=== PATIENT | male | born 1995 | race Caucasian/White ===

== ENCOUNTER 2021-05-13 16:00 | Outpatient (CLI) | payer BC, SELFPAY ==
--- NOTE | ~2021-05-13 | CT_ITS ---
EXAMINATION: CT abdomen pelvis w con EXAM DATE: 05/13/2021 16:47 INDICATION: Right lower quadrant abdominal pain. TECHNIQUE: Spiral CT of the abdomen and pelvis was performed following intravenous injection of 100 m L Omnipaque 350. Axial, coronal and sagittal images of the abdomen and pelvis were reviewed. The do se-length product (DLP) for this examination was 975.29 mGy-cm. The exposure was tailored according to patient size (auto mA exposure control), and iterative reconstruction (ASIR) was used as additiona l dose reduction technique. There is no prior study for comparison. FINDINGS: The liver, spleen, adrenal glands and pancreas are unremarkable. Splenule. Gallbladder is u nremarkable. No biliary obstruction. Portal and splenic veins are patent. Kidneys enhance symmetri tameka. There is no hydronephrosis. The prostate is unremarkable. The bladder is unremarkable. Th ere is no retroperitoneal or pelvic lymphadenopathy. There are no findings to suggest appendicitis. The stomach and small bowel are unremarkable. There is expected amount of colonic stool. No free intraperitoneal gas. The heart is normal in size. T here are no pericardial or pleural effusions. The lung bases are unremarkable. There are no osteobl astic or osteolytic lesions identified. IMPRESSION: 1. No acute intra-abdominal findings. Reviewed, dictated and finalized at location A. NT HANDLER
== END 2021-05-13 16:01 | disposition home or self-care (01) ==
PROVIDERS: PCP Emergency Medicine; Visit Provider Emergency Medicine
DX: R10.9 Unspecified abdominal pain (principal)
CPT/HCPCS: 74177; Q9967

== ENCOUNTER 2021-10-31 08:13 | Emergency (ER) | payer BC, SELFPAY ==
[2021-10-31] VITALS (9 sets, daily range): BP systolic 118–146; BP diastolic 97–100; PULSE 62–88; RESP 15–19; TEMP 36.6; O2SAT 98–100
--- NOTE | ~2021-10-31 | XR_ITS ---
EXAMINATION: XR chest 2V 10/31/2021 08:34 INDICATION: Anterior chest pain PROCEDURE: 2 view chest COMPARISON: No prior studies for comparison. FINDINGS: The lungs are clear. The cardiomediastinal silhouette is within normal limits. There are no pleural effusions. There is no pneumothorax suspected. IMPRESSION: 1: NO ACUTE CARDIOPULMONARY DISEASE. Reviewed, dictated and finalized at location D.
--- NOTE | 2021-10-31 08:14 | ECG_ITS ---
Measurements Intervals [place] Rate: 79 P: 38 SD: 180 QRS: -1 QRSD: 86 T: -1 QT: 366 QTc: 421 Interpretive Statements SINUS RHYTHM BORDERLINE T WAVE ABNORMALITY- INFERIOR LEADS BASELINE ARTIFACT- I, III BORDERLINE ECG Electronically Signed On 10-31-2021 8:27:20 CDT by Chris Cordon D.O.
[2021-10-31] MEDS: ASPIRIN 81 MG CHEWABLE TABLET 324 MG PO (08:34)
[2021-10-31 08:37] LABS: Basophils Percent Auto 0.4 % (0.2-1.2); Eosinophils Absolute Auto 0.1 K/mm3 (0-0.3); Eosinophils Percent Auto 1.1 % (0-4.4); Hematocrit 45.2 % (42.0-52.0); Hemoglobin 15.3 g/dL (14.0-18.0); Immature Granulocyte Absolute 0.01 K/mm3 (0.00-0.031); Immature Granulocyte Percent A 0.2 % (0-0.5); Lymphocytes Absolute Auto 1.67 K/mm3 (0.9-3.2); Lymphocytes Percent Auto 35.2 % (18.3-44.2); Mean Corpuscular HGB Conc 33.8 g/dl (32-36); Mean Corpuscular Hemoglobin 30.1 pg (26-34); Mean Corpuscular Volume 88.8 fl (80-100); Mean Platelet Volume 9.6 fl (7.4-10.4); Monocytes Absolute Auto 0.4 K/mm3 (0.1-0.6); Monocytes Percent Auto 8.4 % (2.6-8.5); Neutrophils Absolute Auto 2.6 K/mm3 (1.3-6.7); Neutrophils Percent Auto 54.7 % (45.5-73.1); Platelet Count Result 254 k/mm3 (150-375); Red Blood Count 5.09 M/mm3 (4.6-6.20); Red Cell Distribution Width 12.1 % (11.5-14.5); White Blood Count 4.7 K/mm3 (4.5-10.0)
[2021-10-31 08:48] LABS: Partial Thromboplastin Time 28.1 SECONDS (22.3-36.8)
[2021-10-31 08:51] LABS: Alanine Aminotransferase 32 U/L (6-50); Albumin Level 4.6 g/dL (3.5-5.1); Alkaline Phosphatase 69 U/L (38-126); Anion Gap 9 mmol/L (8-16); Aspartate Amino Transferase 29 U/L (17-59); Bilirubin,Total 0.5 mg/dL (0.2-1.3); Blood Urea Nitrogen 12 mg/dL (9-20); Calcium 8.9 mg/dL (8.4-10.2); Carbon Dioxide 26 mmol/L (22-30); Chloride 102 mmol/L (98-107); Estimated CRCL calculation 101 ml/min; Estimated Glomerular Filt Rate > 60; Glucose 99 mg/dL (65-110); Lipase 75 U/L (23-300); Sodium 137 mmol/L (137-145)
[2021-10-31 08:59] LABS: Troponin I < 0.012 ng/mL (0.000-0.034)
--- NOTE | 2021-10-31 10:17 | ED.CHESTPAIN ---
HPI - Chest Pain General Chief Complaint: Chest Pain Stated Complaint: chest pain Time Seen by Provider: 10/31/21 10:03 Source: patient Mode of arrival: ambulatory History of Present Illness HPI narrative: 26-year-old male presents today with complaints of chest pain that started last night and numbness to the left arm. Patient also states left leg was numb this morning but currently has not. Patient denies any diaphoresis, nausea, vomiting with chest pain. He says it started last night went to bed and still there when he woke up so he was concerned. Patient states he has a history of similar episodes in the past but never lasting this long. Patient also states the left arm has been numb in the past. Patient denies any neck or back pain. Patient denies shoulder pain. Patient denies urinary or fecal incontinence, saddle paresthesia, or leg weakness. Patient has not seen his primary in a couple years. Related Data Allergies Allergy/AdvReac Type Severity Reaction Status Date / Time No Known Allergies Allergy Verified 10/31/21 08:24 Review of Systems Review of Systems: CONSTITUTIONAL: Denies fever, chills, or sweats. EYES: Denies visual changes, redness, or discharge. ENT: Denies rhinorrhea, congestion, sore throat, or otalgia. CARDIOVASCULAR: Chest pain with left arm numbness and left leg numbness this morning. Denies palpitations, or edema. RESPIRATORY: Denies cough or dyspnea. GASTROINTESTINAL: Denies abdominal pain, nausea, vomiting, or diarrhea. GENITOURINARY: Denies dysuria or hematuria. SKIN: Denies rash or itching. MUSCULOSKELETAL: Denies back pain, joint pain, or myalgia. NEUROLOGIC: Numbness to left arm and left leg this morning. Currently only numbness to left arm. Denies headache, numbness, dizziness, or weakness. PSYCHIATRIC: Denies anxiety or depression. Exam Narrative: GENERAL: Well-appearing, well-nourished, and in no acute distress. HEAD: Normocephalic, atraumatic. EYES: PERRLA and EOMI. ENT: Nares clear, no rhinorrhea or epistaxis. Mucous membranes moist. Oropharynx without tonsillar hypertrophy exudate or other lesions. Bilateral TMs pearly collier nonbulging NECK: Supple. No adenopathy or masses. No carotid bruits or JVD CHEST: Clear to auscultation. No respiratory distress. No wheezes rales or rhonchi HEART: Regular rate and rhythm. No murmur heard. Normal peripheral pulses. ABDOMEN: Soft, nontender, nondistended, normal active bowel sounds. EXTREMITIES: Normal range of motion. No edema. SKIN: Warm, dry, no rash. NEURO: No focal deficits. Alert and oriented x3. Sensation normal to bilateral upper extremities. Patient able to discern sharp from dull. Muscle strength 5 out of 5 bilateral upper extremities and lower extremities. PSYCH: Normal mood and affect. Course Course Emergency Course: Patient without chest pain during visit. Left arm with numbness but no complaints about leg at current time. Patient feels the pain/numbness is a pinched nerve . Left arm strength 5/5. Will give ketorolac and discharge home. Patient instructed to return with any new or worsening symptoms. Vital Signs Vital signs: Vital Signs Temperature 36.6 C 10/31/21 08:16 Pulse Rate 88 10/31/21 08:16 Respiratory Rate 19 10/31/21 08:16 Blood Pressure 146/100 H 10/31/21 08:16 Pulse Oximetry 100 10/31/21 08:16 Temperature 36.6 C 10/31/21 08:16 Pulse Rate 82 10/31/21 10:57 Respiratory Rate 18 10/31/21 10:57 Blood Pressure 126/100 H 10/31/21 10:57 Pulse Oximetry 98 10/31/21 10:57 MDM - Chest Pain MDM Narrative Medical decision making narrative: HPI as noted. Cardiac work up negative and patient without chest pain during stay. No spinal process tenderness and no tenderness to left shoulder. sensation intact in BUE. No weakness noted. Suspect radiculopathy will treat with NSAIDS. Differential Diagnosis Differential diagnosis: Likely atypical chest pain, costochondritis, chest pain and
== END 2021-10-31 10:47 | disposition home or self-care (01) ==
PROVIDERS: Emergency Medicine; Emergency Provider Nurse Practitioner Family; PCP Emergency Medicine
DX: R07.89 Other chest pain (principal); R20.0 Anesthesia of skin; R94.31 Abnormal electrocardiogram [ECG] [EKG]
CPT/HCPCS: 36415; 71046; 80053; 83690; 84484; 85025; 85610; 85730; 93005; 99284; A9270

== ENCOUNTER 2025-05-01 22:36 | Emergency (ER) | payer SELFPAY ==
--- NOTE | ~2025-05-01 | XR_ITS ---
Examination: XR chest 2V Clinical History: CP Comparison: 10/31/2021 Technique: PA and Lateral Findings: Cardiomediastinal silhouette normal size and configuration. Lungs clear. No acute bony abnormality. IMPRESSION: 1. No acute cardiopulmonary findings. Reviewed, dictated and finalized at location R. ETOMETER OPERATOR
[2025-05-01 22:40] VITALS: BP 149/89; PULSE 76; RESP 20; TEMP 36.2; O2SAT 100
--- NOTE | 2025-05-01 22:42 | ECG_ITS ---
Test Date: 2025-05-01 22:49:38 Measurements Intervals [place] Rate: 69 P: 42 MS: 176 QRS: 6 QRSD: 90 T: 7 QT: 382 QTc: 410 Interpretive Statements SINUS RHYTHM LOW QRS VOLTAGE BORDERLINE ECG No previous ECG available for comparison Electronically Signed On 05-02-2025 07:45:10 TACTICAL RESPONSE GROUP OFFICER by Justyn Del Real M.D.
[2025-05-01 22:57] LABS: Hematocrit 44.8 % (42.0-52.0); Hemoglobin 15.4 g/dL (14.0-18.0); Immature Granulocyte Percent A 0.2 % (0-0.5); Lymphocytes Absolute Auto 2.56 K/mm3 (0.9-3.2); Mean Corpuscular HGB Conc 34.4 g/dl (32-36); Mean Corpuscular Hemoglobin 30.2 pg (26-34); Mean Corpuscular Volume 87.8 fl (80-100); Nucleated Red Blood Cells Absolute Auto 0.000 K/mm3 (0.0-0.012); Nucleated Red Blood Cells Perc 0.0 % (0.0-0.2); Platelet Count Result 328 k/mm3 (150-375); Red Blood Count 5.10 M/mm3 (4.6-6.20); White Blood Count 8.6 K/mm3 (4.5-10.0)
[2025-05-01 23:09] LABS: INR 1.0; Prothrombin Time 12.9 Seconds (11.1-14.7)
[2025-05-01 23:10] LABS: Partial Thromboplastin Time 28.2 Seconds (22.3-36.8)
[2025-05-01 23:15] LABS: Alanine Aminotransferase 42 U/L (6-50); Albumin Level 4.8 g/dL (3.5-5.1); Alkaline Phosphatase 77 U/L (38-126); Anion Gap 11 mmol/L (4-12); Aspartate Amino Transferase 35 U/L (17-59); Bilirubin,Total 0.5 mg/dL (0.2-1.3); Blood Urea Nitrogen 11 mg/dL (9-20); Calcium 9.1 mg/dL (8.4-10.2); Carbon Dioxide 27 mmol/L (22-30); Chloride 99 mmol/L (98-107); Estimated CRCL calculation 105 ml/min; Estimated Glomerular Filt Rate > 60; Glucose 101 mg/dL (65-110); Lipase 621 U/L (23-300); Potassium 4.0 mmol/L (3.4-5.0); Sodium 137 mmol/L (137-145); Total Protein 8.1 g/dL (6.3-8.2)
[2025-05-01 23:22] LABS: Troponin I < 0.012 ng/mL (0.000-0.034)
[2025-05-02 00:27] VITALS: O2SAT 100
--- NOTE | 2025-05-02 01:06 | ED_ITS ---
HPI - Chest Pain General Chief Complaint: Chest Pain Stated Complaint: chest pain/left arm numbness x2 days Time Seen by Provider: 05/02/25 00:21 History of Present Illness HPI narrative: Patient is a 30-year-old male who presents to the ER with chest pain that started a couple days ago. He reports the chest pain radiates to his left shoulder. Patient denies any shortness a breath, recent fevers, abdominal pain, or lower extremity swelling. He reports his symptoms are better when he is standing and worse when he is lying flat. Patient endorses a history of fluid in my hip when I was young, but denies any other medical history relevant to this ER visit. He reports he used to take at a bull's regularly but has not used them in approximately 1 month. Related Data Allergies Allergy/AdvReac Type Severity Reaction Status Date / Time No Known Allergies Allergy Verified 10/31/21 08:24 Review of Systems 2 Review of Systems: All systems reviewed & are unremarkable except as noted in HPI and below Exam 2 Narrative: GENERAL: Well appearing, well-nourished, non-toxic, in no acute distress. HEAD: Normocephalic, atraumatic. NECK: Supple. No adenopathy, no masses. RESPIRATORY: Airway patent, respirations nonlabored. Clear to auscultation bilaterally, no rales, rhonchi, wheezing. CARDIOVASCULAR: Regular rate and rhythm without murmurs, rubs, or gallops. Peripheral pulses 2+ and equal bilaterally. ABDOMINAL: Soft, nontender, nondistended, no hepatosplenomegaly. Normoactive BS. MUSCULOSKELETAL: Moves all extremities. Strength/ROM intact without gross deformities. SKIN: Warm, dry, normal color. No rashes. NEURO: A&O X3. Speech clear. Cranial nerves II-XII intact. No ataxic movements. PSYCHIATRIC: Appropriate mood and affect. Normal interaction. Course Vital Signs Vital signs: Vital Signs Temperature 36.2 C L 05/01/25 22:40 Pulse Rate 76 05/01/25 22:40 Respiratory Rate 20 05/01/25 22:40 Blood Pressure 149/89 H 05/01/25 22:40 Pulse Oximetry 100 05/01/25 22:40 Temperature 36.2 C L 05/01/25 22:40 Pulse Rate 76 05/01/25 22:40 Respiratory Rate 20 05/01/25 22:40 Blood Pressure 149/89 H 05/01/25 22:40 Pulse Oximetry 100 05/02/25 00:27 Oxygen Delivery Room Air 05/02/25 00:27 MDM - Chest Pain MDM Narrative Medical decision making narrative: Patient is a 30-year-old male who presents to the ER with chest pain that started a couple days ago. He reports the chest pain radiates to his left shoulder. Patient denies any shortness a breath, recent fevers, abdominal pain, or lower extremity swelling. He reports his symptoms are better when he is standing and worse when he is lying flat. Patient endorses a history of fluid in my hip when I was young, but denies any other medical history relevant to this ER visit. He reports he used to take at a bull's regularly but has not used them in approximately 1 month. Labs Ordered: CBC, CMP, D-dimer, proBNP, PTT, INR, troponin, TSH Imaging Ordered: Chest x-ray Medications Ordered: GI cocktail Results: Patient's chest x-ray indicates no acute findings. Diagnosis: Atypical chest pain, GERD Risks: HEART score: low risk HEART Score for Major Cardiac Events from [email or web address] on 05/02/2025 All calculations should be rechecked by clinician prior to use RESULT SUMMARY: 0 points Low Score (0-3 points) Risk of MACE of 0.9-1.7%. INPUTS: History ?> 0 = Slightly suspicious EKG ?> 0 = Normal Age ?> 0 = <45 Risk factors ?> 0 = No known risk factors Initial troponin ?> 0 = <Normal limit Patient Education/Shared MDM: Results of lab work and imaging shared with patient. He endorses improvement of symptoms following GI cocktail medication administration. Patient strongly advised to maintain hydration status upon discharge and follow-up with his PCP as soon as possible for further evaluation. He will be discharged home with a prescription for Pepcid. Strict return precautions provided. Patient verbalized understanding and is in agreement with plan. Vital signs stable at time of discharge. All questions answered. Differential Diagnosis Differential diagnosis: Likely atypical chest pain, st elevation myocardial infarction, costochondritis, chest pain and other (GERD) Lab Data Attestation: I reviewed the patient's lab results. 05/01/25 22:51 05/01/25 22:51 Labs: Lab Results 05/01/25 05/02/25 Range/Units 22:51 01:25 WBC 8.6 (4.5-10.0) K/mm3 RBC 5.10 (4.6-6.20) M/mm3 Hgb 15.4 (14.0-18.0) g/dL Hct 44.8 (42.0-52.0) % MCV 87.8 (80-100) fl MCH 30.2 (26-34) pg MCHC 34.4 (32-36) g/dl RDW 12.5 (11.5-14.5) % Plt Count 328 (150-375) k/mm3 MPV 9.3 (7.4-10.4) fl Immature Gran % (Auto) 0.2 (0-0.5) % Neut % (Auto) 63.1 (45.5-73.1) % Lymph % (Auto) 29.8 (18.3-44.2) % [place] % (Auto) 6.3 (2.6-8.5) % Eos % (Auto) 0.3 (0-4.4) % Baso % (Auto) 0.3 (0.2-1.2) % Lymph # (Auto) 2.56 (0.9-3.2) K/mm3 [place] # (Auto) 0.5 (0.1-0.6) K/mm3 Eos # (Auto) 0.0 (0-0.3) K/mm3 Baso # (Auto) 0.0 (0.0-0.1) K/mm3 Abs Immat Gran (auto) 0.02 (0.00-0.031) K/mm3 Absolute Neuts (auto) 5.4 (1.3-6.7) K/mm3 Absolute Nucleated RBC 0.000 (0.0-0.012) K/mm3 Nucleated RBC % 0.0 (0.0-0.2) % PT 12.9 (11.1-14.7) Seconds INR 1.0 APTT 28.2 (22.3-36.8) Seconds D-Dimer < 0.27 (<0.48) ug/mL Sodium 137 (137-145) mmol/L Potassium 4.0 (3.4-5.0) mmol/L Chloride 99 (98-107) mmol/L Carbon Dioxide 27 (22-30) mmol/L Anion Gap 11 (4-12) mmol/L BUN 11 (9-20) mg/dL Creatinine 1.21 (0.7-1.3) mg/dL Estim Creat Clear Calc 105 ml/min Estimated GFR > 60 (59 - ) Glucose 101 (65-110) mg/dL Calcium 9.1 (8.4-10.2) mg/dL Total Bilirubin 0.5 (0.2-1.3) mg/dL AST 35 (17-59) U/L ALT 42 (6-50) U/L Alkaline Phosphatase 77 (38-126) U/L Troponin I < 0.012 < 0.012 (0.000-0.034) ng/mL NT-Pro-B Natriuret Pep < 20 (19.9-100) pg/mL Total Protein 8.1 (6.3-8.2) g/dL Albumin 4.8 (3.5-5.1) g/dL Lipase 621 H (23-300) U/L TSH (Reflex) 6.340 H (0.465-4.68) uIU/mL Free T4 Pending Imaging Data Attestation: I personally reviewed and interpreted this imaging study as follows: Radiologist's impression: No acute findings Discharge Plan Discharge Clinical Impression: Atypical chest pain, Chest pain due to GERD Patient Disposition: Home Condition: Stable Instructions: Antibiotic Form, GERD (Gastroesophageal Reflux Disease) (ED), Noncardiac Chest Pain (ED) Additional Instructions: Please return to the ER with any worsening symptoms. Follow-up with primary care provider as soon as possible for further evaluation. Please take Pepcid 1- 2 times per day as needed for symptoms. Remember to drink lots of water. Patient Language: Danish Prescriptions: New famotidine [Pepcid] 40 mg tablet 40 mg PO BID Qty: 60 0RF No Action naproxen [Naprosyn] 500 mg tablet 500 mg PO BID Qty: 60 0RF Follow-up/Referrals: Aguilar Baker MD [Primary Care Provider, Family Practice] Stand Alone Forms: Work/School Release IP Time of Disposition: 02:18
--- NOTE | 2025-05-02 01:20 | ECG_ITS ---
Test Date: 2025-05-02 01:43:27 Measurements Intervals [place] Rate: 65 P: 35 [place]: 174 QRS: 4 QRSD: 87 T: 3 QT: 380 QTc: 397 Interpretive Statements SINUS RHYTHM WITH SINUS ARRHYTHMIA LOW QRS VOLTAGE IN PRECORDIAL LEADS [QRS DEFLECTION < 1.0 mV IN CHEST LEADS] BORDERLINE ECG Compared to ECG 05/01/2025 22:49:38 No significant changes Electronically Signed On 05-02-2025 07:46:13 RN COMPLEX CARE by Justyn Del Real M.D.
[2025-05-02 01:27] LABS: NT Pro B Type Natriuretic Pept < 20 pg/mL (19.9-100)
[2025-05-02 01:55] LABS: Thyroid Stimulating Hormone Reflex 6.340 uIU/mL (0.465-4.68)
[2025-05-02 01:57] LABS: Troponin I < 0.012 ng/mL (0.000-0.034)
[2025-05-02] MEDS: BELLADONNA ALK/PHENOB ELIX 10 ML, MAG HYDROX/ALUMINUM HYD/SIMETH 30 ML, LIDOCAINE 2% VI... PO (02:28)
[2025-05-02 02:32] LABS: Free T4 Free Thyroxine Reflex 1.18 ng/dL (0.78-2.19)
[2025-05-02 02:34] VITALS: BP 122/68; PULSE 69; RESP 13; O2SAT 100
[2025-05-02 03:37] LABS: Total Triiodothyronine (T3) 1.20 NG/ML (0.82-1.58)
== END 2025-05-02 02:36 | disposition home or self-care (01) ==
PROVIDERS: Emergency Provider Registered Nurse; PCP Emergency Medicine
DX: K21.9 Gastro-esophageal reflux disease without esophagitis (principal); R07.89 Other chest pain
CPT/HCPCS: 36415; 71046; 80053; 83690; 83880; 84439; 84443; 84480; 84484; 85025; 85380; 85610; 85730; 93005; 99284; A9270